=== PATIENT | female | born 1980 | race Caucasian/White ===

== ENCOUNTER 2017-12-20 11:32 | Outpatient (CLI) | payer SELFPAY, MEDICAID | END 2017-12-20 13:44 | disposition home or self-care (01) | LOC: OBT 11:32 → L-D 11:33 → OBT 13:44 | DX: O24.415 Gestational diabetes mellitus in pregnancy, controlled by oral hypoglycemic drugs (principal); Z3A.35 35 weeks gestation of pregnancy | CPT/HCPCS: 76818 ==

== ENCOUNTER 2018-01-08 10:41 | Outpatient (CLI) | payer MEDICAID ==
[2018-01-08 12:23] LABS: RUPTURE FETAL MEMBRANES NEGATIVE (NEGATIVE)
== END 2018-01-08 13:25 | disposition home or self-care (01) ==
LOC: OBT 10:41 → L-D 10:44 → OBT 13:25
DX: O62.9 Abnormality of forces of labor, unspecified (principal); O09.513 Supervision of elderly primigravida, third trimester; Z3A.38 38 weeks gestation of pregnancy
CPT/HCPCS: 76818; 82962; 84112

== ENCOUNTER 2018-01-10 01:47 | Inpatient (IN) | payer MEDICAID ==
[2018-01-10] MEDS ORDERED: OXYTOCIN 30 UNITS/LR 500 ML IV ×2 (05:00)
[2018-01-10] MEDS ORDERED: LIDOCAINE 1% (MPF) 30 ML INJ INJ (05:00)
[2018-01-10] MEDS ORDERED: BUTORPHANOL 2 MG INJ IV (05:00)
[2018-01-10] MEDS ORDERED: MISOPROSTOL 200 MCG TAB PR (05:00)
[2018-01-10] MEDS ORDERED: METHYLERGONOVINE 0.2 MG INJ IM (05:00)
[2018-01-10] MEDS ORDERED: CARBOPROST 250 MCG INJ IM (05:00)
[2018-01-10] MEDS: LACTATED RINGER'S 1,000 ML IV ×4 (05:40→20:43)
[2018-01-10 06:15] LABS: ADD MAN DIFF? NO
[2018-01-10 06:17] LABS: ABNORMAL IP MESSAGE 1; BASOPHILS % 0.4 % (0.0-2.0); EOSINOPHILS # 0.1 10^3/ul (0.0-0.5); EOSINOPHILS % 0.4 % (0.0-7.0); HEMATOCRIT 40.9 % (37.0-47.0); HEMOGLOBIN 13.8 g/dl (12.0-16.0); LYMPHOCYTES # 1.4 10^3/ul (0.8-2.9); LYMPHOCYTES % 12.4 % (15.0-51.0); MEAN CORPUSCULAR HEMOGLOBIN 30.8 pg (29.0-33.0); MEAN CORPUSCULAR HGB CONC 33.7 g/dl (32.0-37.0); MEAN CORPUSCULAR VOLUME 91.3 fl (82.0-101.0); MEAN PLATELET VOLUME 13.2 fl (7.4-10.4); MONOCYTE # 0.7 10^3/ul (0.3-0.9); MONOCYTES % 6.2 % (0.0-11.0); NEUTROPHIL # 9.1 10^3/ul (1.6-7.5); NEUTROPHILS % 80.2 % (39.0-77.0); PLATELET COUNT 141 10^3/UL (140-415); RED BLOOD COUNT 4.48 10^6/ul (4.20-5.40); RED CELL DISTRIBUTION WIDTH 14.3 % (11.5-14.5)
[2018-01-10 06:17] LABS: WHITE BLOOD COUNT 11.4 10^3/ul (4.8-10.8)
[2018-01-10 06:24] LABS: POSITIVE DIFF @See below
[2018-01-10 06:36] LABS: INR 0.88; PT RATIO 0.9
[2018-01-10 06:37] LABS: PARTIAL THROMBOPLASTIN TIME 24.8 Sec (25.0-35.0)
[2018-01-10 06:48] LABS: ALANINE AMINOTRANSFERASE 29 IU/L (13-69); ALBUMIN 3.5 g/dl (3.3-4.9); ALKALINE PHOSPHATASE 205 IU/L (42-121); ANION GAP 16 (8-16); ASPARTATE AMINO TRANSFERASE 18 IU/L (15-46); BILIRUBIN,INDIRECT 0.5 mg/dl (0-1.1); BILIRUBIN,TOTAL 0.5 mg/dl (0.2-1.3); BLOOD UREA NITROGEN 10 mg/dl (7-20); CALCIUM 8.9 mg/dl (8.4-10.2); CARBON DIOXIDE 19 mmol/L (21-31); CHLORIDE 108 mmol/L (97-110); CREATININE 0.61 mg/dl (0.44-1.00); GLUCOSE 110 mg/dl (70-220); POTASSIUM 4.1 mmol/L (3.5-5.1); SODIUM 139 mmol/L (135-144)
[2018-01-10] MEDS ORDERED: FENTAnyl 2MCG/ML-ROPIV 0.2% 100 ML (06:55)
[2018-01-10 07:20] LABS: HEPATITIS B SURFACE ANTIGEN NEGATIVE (NEGATIVE)
[2018-01-10 07:41] LABS: HEPATITIS B SURFACE ANTIBODY NEGATIVE (NEGATIVE)
[2018-01-10] MEDS ORDERED: NALOXONE (0.4 MG/ML) INJ IV (15:00)
[2018-01-10] MEDS: FENTAnyl 2MCG/ML-ROPIV 0.2% 100 ML BAG EPI ×2 (15:14→23:19)
[2018-01-10 18:06] LABS: RAPID PLASMA REAGIN NONREACTIVE (NR)
[2018-01-10] MEDS ORDERED: MINERAL OIL LIGHT 10 ML VIAL TOP (20:00)
[2018-01-10] MEDS: OXYTOCIN 30 UNITS/LR 500 ML IV (20:42)
[2018-01-10 21:58] LABS: ADD UMIC YES; UR ASCORBIC ACID NEGATIVE (NEGATIVE); UR BILIRUBIN (Dip) NEGATIVE (NEGATIVE); UR BLOOD (Dip) 3+ mg/dL (NEGATIVE); UR CLARITY CLEAR (CLEAR); UR COLOR YELLOW (YELLOW); UR GLUCOSE (Dip) NEGATIVE (NEGATIVE); UR KETONES (Dip) 2+ mg/dL (NEGATIVE); UR LEUKOCYTE ESTERASE (Dip) TRACE Leu/ul (NEGATIVE); UR NITRITE (Dip) NEGATIVE (NEGATIVE); UR RBC 23 /HPF (0-5); UR SPECIFIC GRAVITY (Dip) 1.009 (1.003-1.030); UR TOTAL PROTEIN (Dip) NEGATIVE (NEGATIVE); UR UROBILINOGEN (Dip) 1+ mg/dL (NEGATIVE); UR WBC 8 /HPF (0-5)
[2018-01-10 23:38] LABS: ADD MAN DIFF? NO
[2018-01-10 23:42] LABS: ABNORMAL IP MESSAGE 1; BASOPHILS % 0.2 % (0.0-2.0); HEMATOCRIT 39.6 % (37.0-47.0); HEMOGLOBIN 13.6 g/dl (12.0-16.0); LYMPHOCYTES # 0.9 10^3/ul (0.8-2.9); LYMPHOCYTES % 5.2 % (15.0-51.0); MEAN CORPUSCULAR HEMOGLOBIN 30.8 pg (29.0-33.0); MEAN CORPUSCULAR HGB CONC 34.3 g/dl (32.0-37.0); MEAN CORPUSCULAR VOLUME 89.6 fl (82.0-101.0); MEAN PLATELET VOLUME 13.2 fl (7.4-10.4); NEUTROPHIL # 15.1 10^3/ul (1.6-7.5); NEUTROPHILS % 88.2 % (39.0-77.0); PLATELET COUNT 130 10^3/UL (140-415); RED BLOOD COUNT 4.42 10^6/ul (4.20-5.40); RED CELL DISTRIBUTION WIDTH 14.3 % (11.5-14.5)
[2018-01-10 23:42] LABS: WHITE BLOOD COUNT 17.2 10^3/ul (4.8-10.8)
[2018-01-10 23:43] LABS: POSITIVE DIFF @See below
[2018-01-11 00:04] LABS: INR 0.98; PARTIAL THROMBOPLASTIN TIME 26.2 Sec (25.0-35.0); PROTIME 13.1 Sec (11.9-14.9)
[2018-01-11 00:09] LABS: FIBRIN SPLIT PRODUCT >10 and <40 ug/ml (<10)
[2018-01-11 00:16] LABS: ALANINE AMINOTRANSFERASE 28 IU/L (13-69); ALBUMIN 3.2 g/dl (3.3-4.9); ALKALINE PHOSPHATASE 214 IU/L (42-121); ANION GAP 16 (8-16); ASPARTATE AMINO TRANSFERASE 17 IU/L (15-46); BILIRUBIN,INDIRECT 1.1 mg/dl (0-1.1); BILIRUBIN,TOTAL 1.1 mg/dl (0.2-1.3); BLOOD UREA NITROGEN 9 mg/dl (7-20); CALCIUM 8.3 mg/dl (8.4-10.2); CARBON DIOXIDE 16 mmol/L (21-31); CHLORIDE 110 mmol/L (97-110); CREATININE 0.66 mg/dl (0.44-1.00); GLUCOSE 108 mg/dl (70-220); POTASSIUM 3.5 mmol/L (3.5-5.1); SODIUM 138 mmol/L (135-144); TOTAL PROTEIN 6.4 g/dl (6.1-8.1)
[2018-01-11 03:56] LABS: Arterial Cord Blood pCO2 48.4 mmHG (25-50); CBA Base Excess -9.3 mmol/L; CBA COHb 0.5 %; CBA Oxygen Sat 27.9 mmHG; CBA Total Hemglobin 19.3 g/dl; Cord Blood Arterial pO2 16.8 mmHG (15.0-45.0); Fraction OxyHgb Cord Arterial 27.4 %; MODE ROOM AIR; MetHgb Cord Arterial 1.2 %; Sample Type CBA; Site CORD
[2018-01-11 04:01] LABS: CBV Base Excess -9.6 mmol/L; CBV COHb 1.2 %; CBV Oxygen Sat 68.3 mmHG; CBV Total Hemglobin 20.4 g/dl; Cord Blood Venous pO2 30.8 mmHG (15.0-45.0); MODE ROOM AIR; MetHgb Cord Venous 0.7 %; Sample Type CBV; Site CORD
[2018-01-11] MEDS: IBUPROFEN 600 MG TAB PO ×3 (04:15→17:56)
[2018-01-11] MEDS: OXYTOCIN 30 UNITS/LR 500 ML IV (04:35)
[2018-01-11] MEDS: LACTATED RINGER'S 1,000 ML IV (04:46)
[2018-01-11] MEDS ORDERED: OXYTOCIN 30 UNITS/LR 500 ML IV ×2 (06:16→06:30)
[2018-01-11] MEDS ORDERED: ONDANSETRON 4 MG INJ IV (06:30)
[2018-01-11] MEDS ORDERED: ZOLPIDEM 5 MG TAB PO (06:30)
[2018-01-11] MEDS ORDERED: GLUCOSE GEL 15 GRAM TUBE PO ×2 (06:30)
[2018-01-11] MEDS ORDERED: ACETAMINOPHEN 325 MG TAB PO (06:30)
[2018-01-11] MEDS ORDERED: GLUCOSE GEL 15 GRAM TUBE BUCCAL (06:30)
[2018-01-11] MEDS ORDERED: NACL 0.9% 3 ML SYG IV (06:30)
[2018-01-11] MEDS ORDERED: DEXTROSE 50% 50 ML SYRINGE IV ×2 (06:30)
[2018-01-11] MEDS ORDERED: METHYLERGONOVINE 0.2 MG INJ IM (06:30)
[2018-01-11] MEDS ORDERED: MISOPROSTOL 200 MCG TAB PR (06:30)
[2018-01-11] MEDS ORDERED: DIPHENHYDRAMINE 25 MG CAP PO (06:30)
[2018-01-11] MEDS ORDERED: GLUCAGON 1 MG INJ IM (06:30)
[2018-01-11] MEDS ORDERED: HYDROCODONE/APAP (5/325) TAB PO (06:30)
[2018-01-11] MEDS ORDERED: CARBOPROST 250 MCG INJ IM (06:30)
[2018-01-11] MEDS: SENNA/DOCUSATE NA (8.6MG/50MG) TAB PO ×2 (08:33→21:08)
[2018-01-11] MEDS: metFORMIN 850 MG TAB PO ×2 (08:33)
[2018-01-11 09:29] LABS: HEMATOCRIT 34.9 % (37.0-47.0); HEMOGLOBIN 11.9 g/dl (12.0-16.0)
[2018-01-11] MEDS: metFORMIN (XR) 500 MG TAB PO ×2 (12:30→21:08)
[2018-01-11] MEDS: ACCU-CHEK XX ×2 (13:50→20:05)
[2018-01-11] MEDS: CEPHALEXIN 500 MG CAP PO ×2 (14:44→17:58)
[2018-01-11] MEDS: WITCH HAZEL/GLYCERIN PAD PR (17:56)
[2018-01-11] MEDS: LANOLIN 7 GM TUBE TOP (17:57)
[2018-01-12] MEDS: IBUPROFEN 600 MG TAB PO ×4 (00:56→17:37)
[2018-01-12] MEDS: CEPHALEXIN 500 MG CAP PO ×4 (00:56→17:37)
[2018-01-12] MEDS: ACCU-CHEK XX ×3 (08:21→13:50)
[2018-01-12] MEDS: metFORMIN (XR) 500 MG TAB PO (08:42)
[2018-01-12] MEDS: SENNA/DOCUSATE NA (8.6MG/50MG) TAB PO (08:42)
[2018-01-12 09:38] LABS: ADD MAN DIFF? NO
[2018-01-12 09:46] LABS: ABNORMAL IP MESSAGE 1; BASOPHILS % 0.3 % (0.0-2.0); EOSINOPHILS # 0.2 10^3/ul (0.0-0.5); EOSINOPHILS % 1.1 % (0.0-7.0); HEMATOCRIT 35.5 % (37.0-47.0); LYMPHOCYTES # 1.8 10^3/ul (0.8-2.9); LYMPHOCYTES % 12.4 % (15.0-51.0); MEAN CORPUSCULAR HEMOGLOBIN 31.3 pg (29.0-33.0); MEAN CORPUSCULAR HGB CONC 33.8 g/dl (32.0-37.0); MEAN CORPUSCULAR VOLUME 92.4 fl (82.0-101.0); MEAN PLATELET VOLUME 13.1 fl (7.4-10.4); MONOCYTE # 0.9 10^3/ul (0.3-0.9); MONOCYTES % 6.2 % (0.0-11.0); NEUTROPHIL # 11.3 10^3/ul (1.6-7.5); NEUTROPHILS % 79.5 % (39.0-77.0); PLATELET COUNT 119 10^3/UL (140-415); RED BLOOD COUNT 3.84 10^6/ul (4.20-5.40); RED CELL DISTRIBUTION WIDTH 14.7 % (11.5-14.5)
[2018-01-12 09:46] LABS: WHITE BLOOD COUNT 14.3 10^3/ul (4.8-10.8)
== END 2018-01-12 18:45 | disposition home or self-care (01) | DRG 775 ==
LOC: OBT 01:47 → PP1 01-11 05:38 → L-D 01:47 → OBT 04:50 → L-D 04:50
PROVIDERS: Obstetrics & Gynecology
PROC: 10D07Z6 Extraction of Products of Conception, Vacuum, Via Natural or Artificial Opening (ICD-10-PCS; principal; 2018-01-10)
PROC: 0KQM0ZZ Repair Perineum Muscle, Open Approach (ICD-10-PCS; 2018-01-10)
PROC: 3E033VJ Introduction of Other Hormone into Peripheral Vein, Percutaneous Approach (ICD-10-PCS; 2018-01-10)
DX: O76 Abnormality in fetal heart rate and rhythm complicating labor and delivery (principal); O70.1 Second degree perineal laceration during delivery; O99.214 Obesity complicating childbirth; E66.01 Morbid (severe) obesity due to excess calories; Z68.32 Body mass index [BMI] 32.0-32.9, adult; Z3A.38 38 weeks gestation of pregnancy; Z37.0 Single live birth
CPT/HCPCS: 36415; 36600; 62319; 76815; 80053; 81001; 82803; 82962; 84560; 85014; 85018; 85025; 85362; 85384; 85610; 85730; 86592; 86706; 86850; 86900; 86901; 87340; 88307; 99464